=== PATIENT | male | born 1945 | race Caucasian/White ===

== ENCOUNTER 2021-06-25 16:36 | Emergency (ER) | payer MEDICARE ==
[2021-06-25 16:46] VITALS: RESP 18
[2021-06-25] MEDS ORDERED: HYDROcodone/APAP 5-325MG 1 EACH TAB PO STA (16:56)
[2021-06-25] MEDS ORDERED: LIDOCAINE 1%-EPI 1:100,000 20 ML VIAL SQ STA (16:56)
[2021-06-25] MEDS ORDERED: DIPH,PERTUS(ACELL)TETVAC-LF 0.5 ML VIAL IM ONE (16:56)
--- NOTE | 2021-06-25 17:02 | ED ---
General Adult HPI - General Chief complaint: Fall Stated complaint: Fall Time Seen by Provider: 06/25/21 16:44 Source: EMS Mode of arrival: EMS Limitations: no limitations - History of Present Illness Initial comments: Dictation was produced using [employer] dictation software. please excuse any grammatical, word or spelling errors. 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 He had objects in his hand when he is going downhill. Patient states that he started to lose his balance and fell landing on his left side. He did strike his head. Denies loss of consciousness. He has no neck pain. States he does have some bumps and bruises. His laceration of his left head. Does complain of some mild pleuritic chest pain. He is worried he broke a rib. EMS was called and patient was brought to the emergency department. The ROS documented in this emergency department record has been reviewed and confirmed by me. Those systems with pertinent positive or negative responses have been documented in the HPI. All other systems are other negative and/or noncontributory. PHYSICAL EXAM: General Impression: Alert and oriented x3, not in acute distress HEENT: Avulsion laceration to the left forehead, extra-ocular movements intact, pupils equal and reactive to light bilaterally, mucous membranes moist. Cardiovascular: Heart regular rate and rhythm Chest: Able to complete full sentences, no retractions, no tachypnea, tenderness to palpation over the left lateral ribs Abdomen: abdomen soft, non-tender, non-distended, no organomegaly Musculoskeletal: Pulses present and equal in all extremities, no peripheral edema Motor: no focal deficits noted Neurological: CN II-XII grossly intact, no focal motor or sensory deficits noted Skin: Abrasions to the left elbow and left hand Psych: Normal affect and mood ED course: 75-year-old male presents to the emergency department after a fall. He suffered blunt head injury, head laceration, blunt injury to the left upper extremity and left chest. Vital Signs upon arrival are within acceptable limits. Laceration repaired at bedside. See laceration note. Head and C-spine CT shows no acute processes. Laceration repaired at bedside. X-ray shows no rib fractures or acute processes. Clinical presentation consistent with head contusion, forehead laceration, chest and left upper extremity contusion. - Related Data Allergies Allergy/AdvReac Type Severity Reaction Status Date / Time No Known Allergies Allergy Verified 06/25/21 16:46 Review of Systems ROS Statement: Those systems with pertinent positive or pertinent negative responses have been documented in the HPI. ROS Other: All systems not noted in ROS Statement are negative. Past Medical History Past Medical History: COPD, Diabetes Mellitus, Hyperlipidemia, Hypertension History of Any Multi-Drug Resistant Organisms: None Reported Past Surgical History: Orthopedic Surgery, Tonsillectomy Past Psychological History: No Psychological Hx Reported Smoking Status: Former smoker Past Alcohol Use History: None Reported Past Drug Use History: None Reported General Exam Limitations: no limitations Course Vital Signs 06/25/21 16:40 Pulse Rate 94 Respiratory 18 Rate Blood Pressure 111/70 O2 Sat by Pulse 93 L Oximetry Procedures - Laceration Laceration #1 Consent Obtained: verbal consent Indication: laceration Site: face Description: flap, avulsion Depth: simple, single layer Anesthetic Used: lidocaine 1%, with epi Anesthesia Technique: local infiltration Pre-repair: wound explored Type of Sutures: nylon Size of Sutures: 6-0 Technique: simple, interrupted Patient Tolerated Procedure: well Disposition Clinical Impression: Fall Disposition: HOME SELF-CARE Condition: Good Instructions (If sedation given, give patient instructions): Fall Prevention for Older Adults (ED) Additional Instructions: Suture removal in 5 days Is patient prescribed a controlled substance at d/c from ED?: No Referrals: Shine Allen DO [Primary Care Provider] - 1-2 days
--- NOTE | 2021-06-25 17:47 | CT ---
EXAMINATION TYPE: CT brain iris aceves con DATE OF EXAM: 06/25/2021 COMPARISON: None HISTORY: Fall, left frontal injury. Possible glass foreign body. No LOC. CT DLP: 1373.4 mGycm Automated exposure control for dose reduction was used. There is cerebral cortical atrophy. There is no mass effect nor midline shift. There is patchy hypode nsity in the periventricular white matter. The calvarium is intact. There is normal aeration of the m astoid sinuses. Skull base is intact. There is some ectasia of the basilar artery. Basilar artery pat sures up to 6 mm. There is left lateral frontal scalp soft tissue swelling. I see no evidence of radiopaque foreign body. The cervical vertebra have normal alignment. There is degenerative disc space narrowing from C4 to C 7 with spurring of the endplates. The posterior elements are intact. There is hypertrophic facet arth ropathy in the mid cervical spine. Prevertebral soft tissues are intact. IMPRESSION: Spondylotic changes in the cervical spine. No fracture. Cerebral atrophy and chronic small vessel ischemia. No acute intracranial abnormality.
--- NOTE | 2021-06-25 18:25 | XR ---
EXAMINATION TYPE: XR ribs LT w pa chest xray DATE OF EXAM: 06/25/2021 COMPARISON: NONE HISTORY: Rib pain TECHNIQUE: 5 views FINDINGS: There is no heart failure nor confluent pneumonic infiltrate. Costophrenic angles are clear . There is no pleural effusion or pneumothorax. There is deformity left fifth rib consistent with old healed fracture. There is also deformity of the cartilage at the anterior left eighth rib probably f rom an old injury. There is some arthritic change in the left shoulder joint. IMPRESSION: No active cardiopulmonary disease. No acute rib fracture seen.
[2021-06-25 18:52] VITALS: BP 109/70; PULSE 92
== END 2021-06-25 18:53 | disposition home or self-care (01) ==
LOC: EC 16:36 → SUPCPDRO 16:36 → EC 18:53
DX: S01.81XA Laceration without foreign body of other part of head, initial encounter (principal); S20.212A Contusion of left front wall of thorax, initial encounter; S40.022A Contusion of left upper arm, initial encounter; E11.9 Type 2 diabetes mellitus without complications; I10 Essential (primary) hypertension; E78.5 Hyperlipidemia, unspecified; J44.9 Chronic obstructive pulmonary disease, unspecified; Z87.891 Personal history of nicotine dependence; Z23 Encounter for immunization; W01.0XXA Fall on same level from slipping, tripping and stumbling without subsequent striking against object, initial encounter
CPT/HCPCS: 12011; 70450; 72125; 90471; 90715; 99285

== ENCOUNTER 2024-04-20 18:37 | Emergency (ER) | payer MEDICARE ==
[2024-04-20 19:02] VITALS: RESP 16
--- NOTE | 2024-04-20 19:09 | ED ---
General Adult HPI - General Chief complaint: Head Injury Stated complaint: Fall-Head Injury Time Seen by Provider: 04/20/24 18:58 Source: patient, RN notes reviewed Mode of arrival: EMS Limitations: no limitations - History of Present Illness Initial comments: Patient is an 78-year-old male presenting to the emergency department with head laceration. Incident occurred just prior to arrival. Patient [place] [facility] [place] a small cart with wheels. Patient fell back and struck the back of his head. No loss of consciousness. Only mild discomfort. No blurry vision. No weakness. No confusion. Patient does not take blood thinners. No other area of injury except for the posterior scalp. - Related Data Allergies Allergy/AdvReac Type Severity Reaction Status Date / Time No Known Allergies Allergy Verified 06/25/21 16:46 Review of Systems ROS Statement: Those systems with pertinent positive or pertinent negative responses have been documented in the HPI. ROS Other: All systems not noted in ROS Statement are negative. Constitutional: Denies: fever Eyes: Denies: eye pain ENT: Denies: ear pain Respiratory: Denies: cough Cardiovascular: Denies: chest pain Endocrine: Denies: fatigue Gastrointestinal: Denies: abdominal pain Genitourinary: Denies: dysuria Musculoskeletal: Denies: back pain Neurological: Reports: as per HPI. Denies: weakness, numbness, paresthesias, confusion, vertigo Past Medical History Past Medical History: COPD, Diabetes Mellitus, Hyperlipidemia, Hypertension History of Any Multi-Drug Resistant Organisms: None Reported Past Surgical History: Orthopedic Surgery, Tonsillectomy Past Psychological History: No Psychological Hx Reported Smoking Status: Former smoker Past Alcohol Use History: None Reported Past Drug Use History: None Reported General Exam Limitations: no limitations General appearance: alert, in no apparent distress Head exam: Present: other (Posterior scalp laceration) Eye exam: Present: normal appearance, PERRL, EOMI ENT exam: Present: normal oropharynx Neck exam: Present: normal inspection. Absent: tenderness, meningismus Respiratory exam: Present: normal lung sounds bilaterally Cardiovascular Exam: Present: regular rate, normal rhythm GI/Abdominal exam: Present: soft. Absent: tenderness Extremities exam: Present: normal inspection, full ROM. Absent: tenderness Neurological exam: Present: alert, oriented X3, CN II-XII intact. Absent: motor sensory deficit Expanded Neurological exam: Present: protecting the airway Speech: Present: fluid speech Cranial nerves: EOM's Intact: Normal Motor strength exam: RUE: 5, LUE: 5, RLE: 5, LLE: 5 Eye Response: (4) open spontaneously Motor Response: (6) obeys commands Verbal Response: (5) oriented Psychiatric exam: Present: normal affect, normal mood Skin exam: Present: other (Laceration posterior scalp) Course Vital Signs 04/20/24 04/20/24 04/20/24 18:44 18:51 19:55 Temperature 98.1 F Pulse Rate 72 75 77 Respiratory 16 16 16 Rate Blood Pressure 156/105 156/105 145/92 O2 Sat by Pulse 95 96 96 Oximetry Procedures - Laceration Laceration #1 Consent Obtained: verbal consent Indication: laceration Site: scalp Size (cm): 3 Description: linear Depth: simple, single layer Pre-repair: wound explored, irrigated extensively Type of Sutures: other (Closed with halley) Number of Sutures: 4 Technique: simple, interrupted Patient Tolerated Procedure: well, no complications Medical Decision Making - Medical Decision Making Was pt. sent in by a medical professional or institution (, PA, CELERY WRAPPER, urgent care, hospital, or prison...) When possible be specific @ -No Did you speak to anyone other than the patient for history (EMS, parent, family, police, friend...)? What history was obtained from this source @ -No Did you review nursing and triage notes (agree or disagree)? Why? @ -I reviewed and agree with nursing and triage notes Were old charts reviewed (outside hosp., previous admission, EMS record, old EKG, old radiological studies, urgent care reports/EKG's, prison records)? Report findings @ -No old charts were reviewed Differential Diagnosis (chest pain, altered mental status, abdominal pain women, abdominal pain men, vaginal bleeding, weakness, fever, dyspnea, syncope, headache, dizziness, GI bleed, back pain, seizure, CVA, palpatations, mental health, musculoskeletal)? @ -Differential Headache: Migraine, tension, cluster, carbon monoxide, central venous thrombosis, pension karma temporal arteritis, acute closure glaucoma, intercranial hemorrhage, mastoiditis, sinusitis, head injury, this is not meant to be an all-inclusive list. EKG interpreted by me (3pts min.). @ -As above X-rays interpreted by me (1pt min.). @ -None done CT interpreted by me (1pt min.). @ -CT brain does not reveal acute intracranial abnormality U/S interpreted by me (1pt. min.). @ -None done What testing was considered but not performed or refused? (CT, X-rays, U/S, labs)? Why? @ -None What meds were considered but not given or refused? Why? @ -None Did you discuss the management of the patient with other professionals (professionals i.e. DrAdolfo, PA, CELERY WRAPPER, lab, RT, psych nurse, social worker psychiatric, unix engineer, teacher, safety security officer, block and case maker)? Give summary @ -No Was smoking cessation discussed for >3mins.? @ -No Was critical care preformed (if so, how long)? @ -No Were there social determinants of health that impacted care today? How? (Homelessness, low income, unemployed, alcoholism, drug addiction, transportation, low edu. Level, literacy, decrease access to med. care, correction, rehab)? @ -No Was there de-escalation of care discussed even if they declined (Discuss DNR or withdrawal of care, Hospice)? DNR status @ -No What co-morbidities impacted this encounter? (DM, HTN, Smoking, COPD, CAD, Cancer, CVA, ARF, Chemo, Hep., AIDS, mental health diagnosis, sleep apnea, morbid obesity)? @ -None Was patient admitted / discharged? Hospital course, mention meds given and route, prescriptions, significant lab abnormalities, going to OR and other pertinent info. @ -Patient greater than age 60 with fall and head injury. Laceration stapled. CT scan done secondary to age. Patient and family updated. Patient will be discharged. Undiagnosed new problem with uncertain prognosis? @ -No Drug Therapy requiring intensive monitoring for toxicity (Heparin, Nitro, Insulin, Cardizem)? @ -No Were any procedures done? @ -No Diagnosis/symptom? @ -Head injury, scalp laceration Acute, or Chronic, or Acute on Chronic? @ -Acute, acute Uncomplicated (without systemic symptoms) or Complicated (systemic symptoms)? @ -Default Side effects of treatment? @ -No Exacerbation, Progression, or Severe Exacerbation? @ -No Poses a threat to life or bodily function? How? (Chest pain, [place], [place], pneumonia, PE, COPD, DKA, ARF, appy, cholecystitis, CVA, Diverticulitis, Homicidal, Suicidal, threat to staff... and all critical care pts) @ -No Disposition Clinical Impression: Head injury, Laceration of scalp Disposition: HOME SELF-CARE Condition: Stable Instructions (If sedation given, give patient instructions): Head Injury (ED), Staple Care (ED) Additional Instructions: Twice daily wash area with soap and water, apply antibiotic ointment. Staple removal in 8 to 10 days. Please follow-up with primary care physician in the next couple days for recheck. Return for confusion, weakness, change in mental status, persistent vomiting, visual changes, worsening symptoms or other concerns. [id number] Tylenol if needed. Is patient prescribed a controlled substance at d/c from ED?: No Referrals: Shine Allen DO [Primary Care Provider] - 1-2 days Time of Disposition: 20:06
[2024-04-20] MEDS: DIPH,PERTUS(ACELL)TETVAC-LF 0.5 ML VIAL IM ONE (19:44)
[2024-04-20] MEDS: ACETAMINOPHEN TAB 325 MG TAB PO STA (19:49)
--- NOTE | 2024-04-20 19:56 | CT ---
EXAMINATION TYPE: CT brain wo con CT DLP: 1201.6 mGycm, Automated exposure control for dose reduction was used. DATE OF EXAM: 04/20/2024 7:34 PM COMPARISON: 06/25/2021. CLINICAL INDICATION:Male, 78 years old with history of fall, Fall, hit head, no LOC. TECHNIQUE: Brain: Axial CT images of the brain were obtained with coronal and sagittal reformats created and rev iewed. Contrast used: None. Oral contrast used: None. FINDINGS: Brain: Extra-axial spaces: No abnormal extra-axial fluid collections. Ventricular system: Dilatation in proportion to cerebral atrophy. Cerebral parenchyma: Cerebral atrophy. No acute intraparenchymal hemorrhage or mass effect. The bernabe -white junction is well differentiated. Scattered hypoattenuating areas are seen within the white mat ter. Cerebellum: Unremarkable. Mass effect: No evidence of midline shift. Intracranial vasculature: Dolichoectasia of the basilar artery. Intracranial atherosclerosis of the a rterial vasculature. Soft tissues: Normal. Calvarium/osseous structures: No depressed skull fracture. Paranasal sinuses and mastoid air cells: Mild scattered paranasal sinus disease. Visualized orbits: Bilateral aphakia. IMPRESSION: 1. No acute intracranial process. 2. Nonspecific white matter changes, likely secondary to chronic small vessel ischemic disease.
[2024-04-20 20:35] VITALS: BP 149/92; PULSE 73; TEMP 98.7
== END 2024-04-20 20:31 | disposition home or self-care (01) ==
LOC: EC 18:37
DX: S01.01XA Laceration without foreign body of scalp, initial encounter (principal); Z23 Encounter for immunization; Z87.891 Personal history of nicotine dependence; W17.89XA Other fall from one level to another, initial encounter; Y92.512 Supermarket, store or market as the place of occurrence of the external cause
CPT/HCPCS: 12002; 70450; 90471; 90715; 99284